=== PATIENT | male | born 1965 | race Caucasian/White ===

== ENCOUNTER 2023-12-30 15:59 | Emergency (ER) | payer BC, SELFPAY ==
[2023-12-30 16:00] VITALS: BP 139/87
[2023-12-30 16:16] LABS: % Basophils 0.9 % (0-2); % Eosinophils 2.2 % (0-6); % Immature Granulocytes 0.4 % (0-0.5); % Lymphocytes 24.1 % (20.5-51.1); % Monocytes 11.1 % (1.7-9.3); % Neutrophils 61.3 % (42.2-75.2); Absolute Basophils 0.1 10^3/uL (0-0.2); Absolute Eosinophils 0.2 10^3/uL (0-0.7); Absolute Lymphocytes 1.7 10^3/uL (1.2-3.4); Absolute Monocytes 0.8 10^3/uL (0.1-0.6); Absolute Neutrophils 4.3 10^3/uL (1.4-6.5); Hematocrit 40.3 % (39.0-52.0); Hemoglobin 14.1 g/dL (13.0-18.0); Mean Corpuscular Hgb 30.5 pg (27.0-31.0); Mean Platelet Volume 10.5 fL (7.4-10.4); Nucleated Red Blood Cells % 0 % (-); Platelet Count 185 10^3/uL (130-400); Red Blood Cell Count 4.63 10^6/uL (4.70-6.10); Red Cell Dist. Width 14.3 % (11.5-14.5); White Blood Cell Count 6.9 10^3/uL (4.8-10.8)
[2023-12-30 16:36] LABS: ALT (SGPT) 30 U/L (0-50); AST (SGOT) 32 U/L (17-59); Albumin 4.3 g/dl (3.5-5.0); Alkaline Phosphatase 91 U/L (38-126); Blood Urea Nitrogen 31 mg/dl (9-20); Calcium 10.1 mg/dl (8.4-10.2); Carbon Dioxide 29 mmol/L (22-30); Chloride 103 mmol/L (98-107); Glucose 106 mg/dl (70-99); Potassium 4.2 mmol/L (3.5-5.1); Sodium 141 mmol/L (135-145); Total Bilirubin 0.8 mg/dl (0.2-1.3); Total Protein 7.4 g/dl (6.3-8.2); eGFR > 60.00
[2023-12-30 16:39] LABS: NT-proBNP 58.8 pg/ml
--- NOTE | 2023-12-30 19:12 | ED.GENMED ---
History of Present Illness
General
Chief Complaint: Swelling
Source: patient and spouse
Time Seen by Provider: 12/30/23 18:47
Travel History
Have you had any contact with someone who has COVID-19?: No
Do you have any symptoms of coronavirus? Fever > 100 degrees, chills, cough, shortness of breath, sore throat, loss of taste or smell, muscle aches, or headache?: No
History of Present Illness
History of Present Illness:
This patient is a 58-year-old male presents emergency department with a 5 to 6-week history of feeling chilly and swelling in his ankles and hands. This has been getting progressively worse and is uncomfortable for him. He denies associated
numbness, tingling, fever, chills, redness, warmth, nausea, vomiting, chest pain, dyspnea, urinary symptoms, abdominal pain, headache, or other complaints. Patient remarks that he does travel frequently and just came back from a trade show. He
does a lot of walking, up to 7 miles per day. Of note, patient was previously on a diuretic but this was discontinued due to hypercalcemia and he was started on nifedipine approximately 6 to 8 weeks ago.
Past History
Past History
ED Past Medical History: Cancer, GERD, HTN, Hypercholesterolemia and Other (gout)
ED Past Surgical History: Orthopedic and Urological
Social History
Tobacco: Non-smoker
Alcohol: Occasional
Drug: None
Personal:
Living: with family
Employment: Employed
Phy Exam
Physical Exam
Physical Exam:
GENERAL: Alert , in no apparent distress
EYE: pupils equal and reactive
NECK: Supple, no significant adenopathy.
ENT: o/p clr, mmm.
CARDIAC: Regular rate and rhythm .
LUNGS: Clear breath sounds bilaterally, no acute respiratory distress, no wheezes/rales/rhonchi
ABDOMEN: Soft, without focal tenderness, no r/g, no cvat
NEUROLOGICAL: Alert and oriented, no focal neuro deficits
SKIN: Warm and dry, skin intact.
MUSCULOSKELETAL: sl ankle edema, well perfused.
PSYCH: Normal and appropriate interaction.
Scores
Heart Failure Risk
Heart Failure Risk Score: Not Applicable
Course
Orders/Labs/Results
Orders:
Orders
12/30/23 16:06
Electrocardiogram (*1) Urgent
Reason for Study: Other
Other Reason for Exam: swelling
EKG- Treatment ONCE
12/30/23 16:11
Complete Blood Count/With Diff Urgent
Comprehensive Metabolic Panel Urgent
NT-proBNP Urgent
Abnormal Lab Results
12/30/23
16:11
RBC 4.63 L 10^6/uL
(4.70-6.10)
MPV 10.5 H fL
(7.4-10.4)
Absolute Monos (auto) 0.8 H 10^3/uL
(0.1-0.6)
Monocytes % 11.1 H %
(1.7-9.3)
BUN 31 H mg/dl
(9-20)
Glucose 106 H mg/dl
(70-99)
12/30/23 16:11
12/30/23 16:11
Vital Signs
Initial and Last Documented VS:
Initial Vital Signs
Temp Pulse Resp BP Pulse Ox
97.7 F 87 18 139/87 96
12/30/23 16:00 12/30/23 16:00 12/30/23 16:00 12/30/23 16:00 12/30/23 16:00
Last Documented Vital Signs
Temp Pulse Resp BP Pulse Ox
97.7 F 87 18 139/87 96
12/30/23 16:00 12/30/23 16:00 12/30/23 16:00 12/30/23 16:00 12/30/23 16:00
*Critical Care Note
Total Time (30-74mins, 75-104mins- exclusive of procedures): Not Applicable
Update Note
Update Note:
Patient presents to the Emergency Department with swelling
Number and Complexity of Problems Addressed at the Encounter
� Chronic conditions affecting care:
� Acute Exacerbation and/or Progression of Chronic Illness:
� Differential Diagnosis includes: but not limited to medication assoc peripheral edema, electrolyte disturbance, renal dz, etc.
Amount and/or Complexity of Data to be Reviewed and Analyzed
� I performed an independent evaluation of and my interpretation is:
EKG:read by me, nsr, nl rate, nl axis, no ischemia
CT:
Xrays:
Laboratory Studies:unremarkable
Other:
� Review of other/old records reveals:
� Clinical information was obtained by an independent historian:
� Prescriptions/Medications Considered but not given:
� Further testing considered but not performed:
Risk of Complications and/or Morbidity or Mortality of Patient Management
� Social determinants of health affecting care:
� Discussion with other providers (PCP, Hospitalists, Consultants, etc):
� Escalation of care including admission/observation vs risk of discharge considered: CASE D/W COVERING CARDIOLOGY FOR dR MARSH, HIS NAME IS DR LA SANCHEZ, AWARE OF HX, PHYS, MEDS, VITALS, ETC. AGREES WITH RECOMMENDATIN TO D/C
NIFEDIPINE, CAN GO UP TO 75 ON METOPROLOL OVER WEEKEND, WILL HAVE OFFICE CALL HIM ON TUESDAY FOR FURTHER F/U.
ED Attending Note
-
Portions of this chart may have been created with voice recognition software.� Occasional wrong word or��sound alike� substitutions may have occurred due to the inherent limitations of voice recognition software.
Discharge Plan
Departure
Patient Disposition: Home (Routine Discharge)
Date of Disposition: 12/30/23
Time of Disposition: 19:54
Patient with high blood pressure during this ER visit?: Yes
Discharge Problem:
peripheral edema
Instructions: Swelling, BLOOD PRESSURE
Prescriptions:
No Action
metoprolol succinate 50 MG tablet extended release 24 hr
50 mg PO DAILY
aspirin 81 MG tablet,delayed release (DR/EC)
81 mg PO DAILY
valsartan-hydrochlorothiazide [Diovan HCT] 1 EACH tablet
1 tab PO DAILY
niacin 250 MG tablet extended release
1,000 mg PO DAILY
allopurinol 300 MG tablet
200 mg PO DAILY
ezetimibe-simvastatin 10 MG/20 MG tablet
1 tab PO QPM
omega-3 acid ethyl esters [Lovaza] 1 G capsule
3 cap PO DAILY
multivitamin with folic acid [Tab-A-Kathie] 1 TABLET tablet
1 tab PO DAILY
cephalexin 500 MG capsule
500 mg PO QID Qty: 28 0RF
Activity Restrictions/Additional Instructions:
PLEASE DISCONTINUE NIFEDIPINE UNTIL FURTHER NOTICE. IT IS VERY IMPORTANT THAT YOU CONTACT YOUR LOGISTICIAN AND/OR PRIMARY CARE DOCTOR BY TUESDAY FOR FURTHER GUIDANCE REGARDING MEDICATIONS FOR BLOOD PRESSURE. IF YOU DEVELOP CHEST PAIN, TROUBLE
BREATHING, INCREASING/NEW SWELLING, VOMITING, DIZZINESS, OR OTHER WORRISOME SIGNS, GO TO THE ER IMMEDIATELY!
Interventions
Interventions:
*Risk Screen - Suicide Last Done: 12/30/23 16:00
*General Assessment Last Done: 12/30/23 16:00
*Neglect/Abuse Screening Last Done: 12/30/23 16:00
== END 2023-12-30 20:30 | disposition home or self-care (01) ==
LOC: EMR 15:59
PROVIDERS: Emergency Medicine; EMERGENCY PHYSICIAN Emergency Medicine; FAMILY PHYSICIAN Internal Medicine
DX: R60.0 Localized edema (principal); I10 Essential (primary) hypertension
CPT/HCPCS: 99284; 80053; 83880; 85025; 93005

== ENCOUNTER 2024-12-13 06:16 | Day surgery (SDC) | payer BC, SELFPAY ==
[2024-12-13 07:39] LABS: Glucose - Point of Care 91 mg/dl (70-99)
== END 2024-12-13 09:10 | disposition home or self-care (01) ==
LOC: GI 06:16
PROVIDERS: ATTENDING PHYSICIAN Specialist
DX: Z12.11 Encounter for screening for malignant neoplasm of colon (principal); K57.30 Diverticulosis of large intestine without perforation or abscess without bleeding; D12.3 Benign neoplasm of transverse colon; Z86.0101 Personal history of adenomatous and serrated colon polyps
CPT/HCPCS: 45380; 88305; 82962